=== PATIENT | male | born 1965 | race Hispanic/Latino ===

== ENCOUNTER 2019-01-23 12:45 | Emergency (ER) | payer SELFPAY ==
[2019-01-23 13:04] VITALS: BP 186/103
[2019-01-23] MEDS ORDERED: DECADRON IM ONE (13:37)
[2019-01-23] MEDS ORDERED: SOLU-Medrol IM ONE (13:37)
[2019-01-23] MEDS ORDERED: IBUPROFEN PO ONE (13:37)
--- NOTE | 2019-01-23 13:41 | Emergency Department Report ---
ED Lower Extremity HPI - General Chief Complaint: Extremity Injury, Lower Stated Complaint: KNOT LT KNEE Time Seen by Provider: 01/23/19 13:32 Source: patient Mode of arrival: Ambulatory Limitations: No Limitations - History of Present Illness Initial Comments: Patient is a pleasant 53-year-old male comes to the ER with left knee pain for weeks. He is morbidly obese and diabetic. He has no trauma to the knee. 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 The patient is compliant with his metformin. No history of gout. His vital signs are stable. He is afebrile. The joint is not red. It is not warm to touch. However, the knee is swollen consistent with effusion Patient did attempt to have an MRI at an outpatient center but the MRI was not big enough to accommodate him PMH DM RX METFORMIN -: Gradual, week(s) Place: home Severity: moderate Improves With: nothing Worsens With: movement - Related Data Previous Rx's Medication Instructions Recorded Last Taken Type Naproxen [Naprosyn] 500 mg PO BID PRN #20 tablet 01/23/19 Unknown Rx predniSONE [Deltasone] 20 mg PO DAILY #5 tablet 01/23/19 Unknown Rx Allergies Allergy/AdvReac Type Severity Reaction Status Date / Time No Known Allergies Allergy Unverified 01/23/19 12:46 ED Review of Systems ROS: Stated complaint: KNOT LT KNEE Other details as noted in HPI Comment: All other systems reviewed and negative ED Past Medical Hx - Past Medical History Previous Medical History?: Yes Hx Diabetes: Yes - Surgical History Past Surgical History?: No - Family History Family history: no significant - Social History Smoking Status: Light Tobacco Smoker Substance Use Type: None - Medications Home Medications: Home Medications Medication Instructions Recorded Confirmed Last Taken Type Naproxen [Naprosyn] 500 mg PO BID PRN #20 tablet 01/23/19 Unknown Rx predniSONE [Deltasone] 20 mg PO DAILY #5 tablet 01/23/19 Unknown Rx ED Physical Exam - General Limitations: No Limitations General appearance: alert - Head Head exam: Present: atraumatic - Eye Eye exam: Present: normal appearance - ENT ENT exam: Present: mucous membranes moist - Neck Neck exam: Present: normal inspection - Respiratory Respiratory exam: Present: normal lung sounds bilaterally - Cardiovascular Cardiovascular Exam: Present: regular rate - GI/Abdominal GI/Abdominal exam: Present: soft - Expanded Lower Extremity Exam Right Upper Leg exam: Present: normal inspection Knee exam: Present: normal inspection Lower Leg exam: Present: normal inspection Ankle exam: Present: normal inspection Left Knee exam: Present: swelling, crepidus, effusion, full knee extension (no joint line tenderness; no redness or warmth). Absent: tenderness, abrasion, laceration, ecchymosis, deformity, dislocation, erythema, posterior draw sign, pain/laxity with valgus, pain/laxity with varus Lower Leg exam: Present: normal inspection Ankle exam: Present: normal inspection ED Course Vital Signs 01/23/19 13:02 Temperature 98.4 F Pulse Rate 106 H Respiratory 18 Rate Blood Pressure 186/103 O2 Sat by Pulse 100 Oximetry - Reevaluation(s) Reevaluation #1: 01/23/19 13:49 BP NOTED TO BE INC NO BLANTON NO CP NO SOB DISCUSSED WITH PT HE WILL FOLLOW WITH PCP ED Lower Extremity MDM - Medical Decision Making MEDICATED IN ER IMMOBILIZER PT TOO LARGE FOR CRUTCHES WE DISCUSSED HIS BLOOD SUGAR AND BLOOD PRESSURE NO CP NO SOB OBESE DM ON METFORMIN NO TRAUMA NOT CONCERNED FOR SEPTIC JOINT AMBULATORY MINIMAL PAIN; PT CO MORE OF THE SWELLING Vital Signs 01/23/19 13:02 Temperature 98.4 F Pulse Rate 106 H Respiratory 18 Rate Blood Pressure 186/103 O2 Sat by Pulse 100 Oximetry Critical care attestation.: If time is entered above; I have spent that time in minutes in the direct care of this critically ill patient, excluding procedure time. ED Disposition Clinical Impression: Knee effusion, left, Diabetes, Morbid obesity, Elevated blood pressure reading Disposition: - TO HOME OR SELFCARE Is pt being admited?: No Does the pt Need Aspirin: No Condition: Stable Instructions: Diabetes Mellitus Type 2 in Adults (ED), Knee Effusion (ED) Additional Instructions: IMMOBILIZING THE KNEE WILL HELP THE FLUID RESORB WHERE WHILE UP AND YOU CAN TAKE OFF WHEN IN BED REST ELEVATE LEG WARM COMPRESSES MEDS ORDERED FOLLOW UP WITH DR DIAZ OR ORTHO MD FOR MRI YOU MAY NEED THE FLUID REMOVED FROM THE KNEE MONITOR YOUR BLOOD SUGAR MEDS CAN MAKE IT GO UP WORK ON YOUR WEIGHT THIS WILL HELP YOUR KNEE FOLLOW UP WITH YOUR PCP TO BE SURE YOUR BLOOD PRESSURE IS WELL CONTROLLED Prescriptions: predniSONE [Deltasone] 20 mg PO DAILY #5 tablet Naproxen [Naprosyn] 500 mg PO BID PRN #20 tablet PRN Reason: Pain Referrals: HUMBERTO DIAZ MD [Staff Physician] - 3-5 Days Time of Disposition: 13:38
== END 2019-01-23 14:23 | disposition home or self-care (01) ==
LOC: ED 12:45
DX: M25.462 Effusion, left knee (principal); E11.9 Type 2 diabetes mellitus without complications; E66.01 Morbid (severe) obesity due to excess calories; R03.0 Elevated blood-pressure reading, without diagnosis of hypertension; F17.200 Nicotine dependence, unspecified, uncomplicated
CPT/HCPCS: 29505; 96372; 99283; J1100; J2920

== ENCOUNTER 2020-07-22 08:38 | Outpatient (CLI) | payer OTHER ==
--- NOTE | 2020-07-22 10:42 | XRay Report ---
LEFT KNEE 4 VIEWS INDICATION: UNILATERAL PRIMARY OSTEOPOROSIS, LEFT KNEE. COMPARISON: None. IMPRESSION: No acute osseous or soft tissue abnormality. Mild medial compartment joint space narr owing and mild retropatellar spurring are identified. Signer Name: David Moncada Jr, MD Signed: 07/22/2020 10:38 AM Workstation Name: [id number]
== END 2020-07-22 08:39 | disposition home or self-care (01) ==
LOC: XRAY 08:38
PROVIDERS: ATTEND Orthopaedic Surgery
DX: M17.12 Unilateral primary osteoarthritis, left knee (principal)

== ENCOUNTER 2020-09-21 07:50 | Outpatient (CLI) | payer OTHER ==
--- NOTE | 2020-09-21 11:12 | Magnetic Resonance Report ---
MRI LEFT KNEE WITHOUT CONTRAST INDICATION / CLINICAL INFORMATION: UNILATERAL PRIMARY OSTEOARTHRITIS OF LEFT KNEE. TECHNIQUE: Multiplanar, multisequence MR images were obtained. No contrast used. COMPARISON: Left knee radiographs 07/22/2020 FINDINGS: ACL: No significant abnormality. PCL: No significant abnormality. DISTAL QUADRICEPS TENDON: No significant abnormality. PATELLAR TENDON: No significant abnormality. MEDIAL MENISCUS: Diffuse free edge fraying with irregular attenuation of the posterior horn of the me dial meniscus with moderate peripheral extrusion of the body segment. Findings suggestive of complex tear at the posterior horn, most likely radial morphology. LATERAL MENISCUS: No significant abnormality. POSTEROLATERAL CORNER: No significant abnormality. MCL: No significant abnormality. LCL: No significant abnormality. DISTAL IT BAND: No significant abnormality. PATELLOFEMORAL ALIGNMENT: No significant abnormality. ARTICULAR CARTILAGE: Mild patellofemoral chondrosis. Mild lateral tibiofemoral chondrosis. Mild media l tibiofemoral chondrosis. No focal high-grade chondromalacia. JOINT SPACE: Moderate size effusion with mild synovitis. No significant popliteal cyst. No intra-valery cular bodies. BONES: No significant bone marrow edema. No fracture. No osseous lesion. SOFT TISSUES: Mild pretibial edema. ADDITIONAL FINDINGS: None. IMPRESSION: 1. Very limited exam since a body coil was used. Specifically the images are very grainy. Despite thi s limitation, there is a complex tear at the posterior horn of the medial meniscus without displaced fragment or parameniscal cyst. 2. Mild tricompartmental degenerative change. 3. Moderate-sized effusion with mild synovitis. Report dictated by: Franky Campos MD Report dictated on: 09/21/2020 8:43 AM I have reviewed the images, agree with this report, and edited this report as needed. Signer Name: Jason Gamez MD Signed: 09/21/2020 11:07 AM Workstation Name: [id number]
== END 2020-09-21 07:51 | disposition home or self-care (01) ==
LOC: MRI 07:50
PROVIDERS: ATTEND Orthopaedic Surgery
DX: S83.232A Complex tear of medial meniscus, current injury, left knee, initial encounter (principal); M17.12 Unilateral primary osteoarthritis, left knee; M25.462 Effusion, left knee; X58.XXXA Exposure to other specified factors, initial encounter; Y93.9 Activity, unspecified; Y92.89 Other specified places as the place of occurrence of the external cause; Y99.8 Other external cause status
CPT/HCPCS: 73721